=== PATIENT | male | born 1945 | race Caucasian/White ===

== ENCOUNTER 2025-09-28 12:44 | Emergency (ER) | payer MEDICARE ==
[~2025-09-28] VITALS: Ht 170.2 cm; Wt 93.0 kg
[~2025-09-28 12:44] MED LIST: APIX5TAB PO; LEVO-70 PO; METO-408 PO; METR-172 PO
--- NOTE | 2025-09-28 15:08 | ERN ---
General Chief Complaint: Finger Injury Stated Complaint: RIGHT 5TH FINGER PAIN Time Seen by MD: 12:45 Source: patient History of Present Illness Initial Comments Patient is a an 80-year-old gentleman coming in complaining of right hand 5th finger pain. Per patient he was stretching and felt as in his finger got locked Allergies: Coded Allergies: No Known Drug Allergies (Unverified Allergy, Unknown, 05/14/22) Home Meds Active Scripts Metronidazole (Metronidazole) 500 Mg Tablet, 500 MG PO TID for 10 Days, #30 TAB 0 Refills Prov:[facility] 05/16/22 Levofloxacin (Levofloxacin) 500 Mg Tablet, 500 MG PO DAILY for 10 Days, #10 TAB 0 Refills Prov:[facility] 05/16/22 Metoprolol Succinate (Metoprolol Succinate) 25 Mg Tab.er.24h, 25 MG PO DAILY, #30 TAB 1 Refill Prov:[facility] 05/16/22 Reported Medications Apixaban (Eliquis) 5 Mg Tablet, 5 MG PO BID, TAB 05/14/22 Past Medical History Past Medical History: A-Fib, Heart Disease Past Surgical History: Other Surgical History Other: PROSTATE SX Social History Social History: Other ROS Dictation CONSTITUTIONAL: No chills, no fever, no weakness, no diaphoresis, no malaise. HEAD/FACE: No signs of trauma. EENT: No eye pain, no blurred vision, no tearing, no double vision, no ear pain, no ear discharge, no nose pain, no nasal congestion, no throat pain, no throat swelling, no mouth pain. RESPIRATORY: No cough, no orthopnea, no SOB, no stridor, no wheezing. CARDIOVASCULAR: No chest pain, no edema, no palpitations, no syncope. GASTROINTESTINAL/ABDOMINAL: No abdominal pain, no constipation, no diarrhea, no nausea, no vomiting. GENITOURINARY: No abnormal discharge, no dysuria, no frequent urination, no hematuria. No complaints of pain in the genitals. MUSCULOSKELETAL: No back pain, no gout, joint pain, joint swelling, no muscle pain, no muscle stiffness, no neck pain. INTEGUMENTARY: No change in color, no change in hair/nails, no dryness, no lesion, no lumps, no rash. NEUROLOGICAL/PSYCH: No anxiety, not depressed, no emotional problem, no headache, no numbness, no pre-existing deficit, no history of seizures, no tremors, no weakness. HEMATOLOGIC/LYMPHATIC: Not anemic, no history of blood clots, no apparent bleeding, no bruising, glands not swollen. All Systems Negative, Except as Noted. Physical Exam Physical Exam Dictation VITAL SIGNS: Reviewed. GENERAL APPEARANCE: Alert, oriented x3, no acute distress, obese. HEAD AND FACE: Non-traumatic. EYES: PERRL, pink conjunctivas, eyelid no trauma, anterior chamber clear. EARS: Pinnas intact and no signs of trauma or erythema. Ear canals clear and no discharge. TMs no erythema. NOSE: No discharge, no bleeding. OROPHARYNX: Mouth normal, teeth no caries, tongue pink. Pharynx clear, no erythema. Tonsils no exudates, no abscesses noted. Mucous membrane moist. NECK: Supple, non-tender, no thyromegaly, no masses, no JVD, no bruits. BREAST: Deferred. CHEST: No tenderness, no crepitus, no paradoxical movement, no retractions. LUNGS: Clear, well-ventilated, symmetric, no rales, no wheezing, no rhonchi, no stridor, good breath sounds bilaterally. HEART: Regular rate, regular rhythm, no murmur, no gallops. VASCULAR: No peripheral edema. ABDOMEN: Soft, positive bowel sounds, nondistended, no guarding, nontender, no rebound, no masses no hepatomegaly, no splenomegaly, no Ramírez's sign, no hernias. RECTAL: Deferred. GENITAL: Deferred. NEUROLOGICAL: Normal speech, gross motor function intact, gross sensory function intact. MUSCULOSKELETAL: Neck nontender, full range of motion, back nontender, full range of motion. EXTREMITIES: Nontender, full range of motion. Fifth digit tenderness on palpation SKIN: Color pink, dry, no turgor, no rash, no lacerations, no abrasions, no contusions. LYMPHATICS: Deferred. Results Laboratory and Microbiology Labs Reviewed?: Yes EKG/XRAY/US/CT/MRI X-RAY Comment [place] [id number] [place] [id number] IMAGING REPORT Signed PATIENT: TAL WILKERSON MR#: [id number] : 1945 SEX: M AGE: 80 LOCATION: [facility] ORDER 1250 STATUS: REG ER REPORT#: [id number] SERVICE 1249 REASON: pain ORDERING PHYSICIAN: ALFRED MARIO MD PROCEDURE: FINGER RT - FINGER(S) 2+VWS RT EXAM: CR right Finger, 3 View. CLINICAL HISTORY: pain COMPARISON: None provided. FINDINGS: BONES: No acute fracture or aggressive appearing osseous lesion. JOINTS: No dislocation. The joint spaces are normal. SOFT TISSUES: The soft tissues are unremarkable. IMPRESSION: No acute osseous abnormality. No acute fracture or dislocation. /[place] DICTATED BY: PORTILLO DOWNING MD DATE: 09/28/251610 ELECTRONICALLY SIGNED BY: PORTILLO DOWNING MD DATE: 09/28/251610 MDM MDM: Differential diagnosis: Fingers strain, ligament tear Rationale: Tests considered and ordered secondary to shared decision making include: Previous outside records reviewed: Old ER visits. Risk of complication and/or morbidity or mortality of patient management: None Medications-Per medication reconciliation Need for hospitalization: Patient does not meet criteria for hospitalization. Need for emergency major/minor surgery: No Patient is a an 80-year-old gentleman coming in complaining of right hand 5th digit pain. X-ray did not disclose acute findings. Patient will be referred to Dr. Tripathi him specialist appointment we will be made. Finger splint placed as well ED Course Orders Procedure Category Date Status Time Finger(S) 2+Vws Rt RAD 09/28/25 Resulted 12:49 Vital Signs Date Time Temp Pulse Resp B/P (MAP) Pulse Ox O2 Delivery O2 Flow Rate FiO2 09/28/25 12:45 98.1 77 16 133/73 95 Room Air 0 DX & DISP Disposition: Discharge Departure Impression: Primary Impression: Trigger finger (acquired) Condition: Stable Additional Instructions: FOLLOW-UP WITH PRIMARY CARE PROVIDER IN 1 TO 2 DAYS. TAKE MEDICATIONS DIRECTED HERE IN THE EMERGENCY ROOM. OKAY TO CONTINUE HOME MEDICATIONS UNLESS OTHERWISE DISCUSSED DURING YOUR VISIT IN THE EMERGENCY ROOM TODAY. RETURN TO YOUR NEAREST EMERGENCY ROOM IF SYMPTOMS WORSEN OR IF THERE IS NO IMPROVEMENT. CALL 911 IF YOU NEED IMMEDIATE ASSISTANCE. TAKE TYLENOL [id number] NEEDED AND IF NO CONTRAINDICATIONS ARE PRESENT. INCREASE ORAL HYDRATION. A WOUND CULTURE OR URINE CULTURE WAS ORDERED HERE IN THE EMERGENCY ROOM DEPARTMENT PLEASE FOLLOW-UP WITH PRIMARY CARE PROVIDER AND ADVISE THEM TO GET REPORTS FROM OUR FACILITY. IF YOU HAD ANY [place] WRAP/SPLINTS THAT WERE APPLIED HERE, PLEASE DO NOT REMOVE THEM UNTIL YOU SEE YOUR PRIMARY CARE OR SPECIALTY. Referrals: Referrals: SORAIDA FUENTES NP (PCP) DIANA TRIPATHI MD Time of Disposition: 15:16 ALFRED MARIO MD Sep 28, 2025 15:08
--- NOTE | 2025-09-28 15:11 | HMCIMG ---
EXAM: CR right Finger, 3 View. CLINICAL HISTORY: pain COMPARISON: None provided. FINDINGS: BONES: No acute fracture or aggressive appearing osseous lesion. JOINTS: No dislocation. The joint spaces are normal. SOFT TISSUES: The soft tissues are unremarkable. IMPRESSION: No acute osseous abnormality. No acute fracture or dislocation. /[place]
[2025-09-28 15:28] VITALS: BP 129/76; PULSE 76; RESP 16; TEMP 98; O2SAT 98
== END 2025-09-28 15:29 | disposition home or self-care (01) ==
LOC: EDH 12:44
DX: M65.351 Trigger finger, right little finger (principal); I48.91 Unspecified atrial fibrillation; Z79.01 Long term (current) use of anticoagulants; Z79.899 Other long term (current) drug therapy
CPT/HCPCS: 29130; 73140; 99283